=== PATIENT | female | born 1990 | race Caucasian/White ===

== ENCOUNTER 2016-10-29 15:28 | Emergency (ER) | payer OTHER ==
[~2016-10-29] VITALS: Ht 160 cm; Wt 109.1 kg
[~2016-10-29 15:28] MED LIST: AMOX-366 PO; Ascorbic Acid PO; Bisacodyl RECTAL; DOCU-41 PO; FERR-74 PO; IBUP400T22 PO; MELA1TAB11 PO; OXYC1TAB24 PO; PREN1TAB87 PO
[2016-10-29 15:42] VITALS: BP 138/91; PULSE 86; RESP 22; O2SAT 99
--- NOTE | 2016-10-29 16:15 | ED.REPORT ---
HPI-Trauma Multiple Date of Service Oct 29, 2016 ED Provider: Lazaro Streeter MD This is a 26 year old female presenting to the ED with injury to left scalp that occurred just prior to arrival. Pt was in the bathroom when her R knee "gave out." She hit her head against the corner of a door and was found down by her spouse. Reports brief LOC, neck pain, bleeding from the scalp, headache, mild confusion, R knee pain, and nausea. She denies vomiting, dizziness, abdominal pain, any other trauma or injuries. Nursing Notes Stated Complaint: FELL HIT FACE, BLEEDING Chief Complaint: Head, Face, Neck Trauma Nursing Notes Reviewed: Yes Allergies: Coded Allergies: hydrocodone (Verified Allergy, Unknown, 10/29/16) Scheduled ([Ascorbic Acid]) 500 MG TABLET 500 MG PO BID Amoxicillin/Clav K 875-125 mg (Augmentin 875-125 mg) 1 Each Tablet 1 TABLET PO BID Ferrous Sulfate (Feosol) 325 Mg Tablet 325 MG PO BIDWM Melatonin/Pyridoxine (Melatonin 3 mg Tablet) 1 Each Tablet 7 EACH PO HS Vit W-Ca,Fe,FA(<1 mg) ( Vitamins) 1 Each Tablet 1 EACH PO DAILY Scheduled PRN ([Bisacodyl]) 10 MG SUPP 10 MG RECTAL DAILY PRN PRN For Constipation Docusate Sodium (Colace) 100 Mg Capsule 100 MG PO BID PRN PRN For Constipation Hydrocodone-Acetaminophen 5-325 mg (Hydrocodone-Acetaminophen 5-325 mg) 1 Each Tablet 1 TABLET PO Q4H PRN PRN For Pain Ibuprofen (Ibuprofen) 400 Mg Tablet 800 MG PO TID PRN PRN For Pain Ondansetron ODT (Zofran ODT) 4 Mg Tablet 4 MG PO Q4H PRN PRN For Nausea oxyCODONE-Acetaminophen 5-325 mg (oxyCODONE-Acetaminophen 5-325 mg) 1 Each Tablet 1-2 TAB PO Q4H PRN PRN For Pain General Time Seen by Provider: 15:40 Chief Complaint Head pain/injury Hx Obtained From: Patient Arrived By: Walk-in Onset Occurred: Just prior to arrival Symptom Duration: Since onset Severity: Current: Mild Pertinent Negative: Pt denies other symptoms Recent Healthcare: No recent doctor visit, No recent hospitalization Similar Sx Previous: No Risk-Trauma Multiple Head CT Imaging Inclusion Criteria: >/= 16 yo age GCS of 14 OR 15 Presentation w/in 24 hrs. Patient Presents WITH: Loss of Conciousness RF Statements: Risk factors reviewed Past Medical History Past Medical History PCOS Past Surgical History left knee, ACL and meniscus at 14 year old Reports: , Cholecystectomy Family History heart disease (maternal relations) Smoking History Never Smoker Social History Alcohol Use: "Social" Drug Use: Meth, THC Other Social History: Good social support, Local resident Occupation lives with boyfriend.Works at [employer] Status Independent Review of Systems Constitutional: Denies: Chills, Fever GI: Reports: Nausea, Denies: Abdominal pain, Constipation, Diarrhea, Vomiting Neurologic: Reports: Change LOC, Headache, Denies: Lightheaded Complete sys rev & neg: except as marked. Physical Exam Initial Vital Signs Vital Signs (First) Date Time Temp Pulse Resp B/P Pulse Ox O2 Delivery O2 Flow Rate FiO2 10/29/16 15:42 36.8 86 22 138/91 99 Room Air Initial VS: Reviewed ENT: Mucous membranes moist, Conjunctiva normal, No scleral icterus Extremities: Vascular intact, Neuro intact, No swelling, No tenderness Skin: Warm, Dry, No cyanosis Psychiatric: Mood/affect normal, Behavior normal, Normal thought content General/Constitutional: Awake, Alert Head / Eyes: PERRL (4 mm), No periorbital swelling, Eyelids NL 1 x 5 cm region of abrasion about l forehead and scalp no laceration, no foreign body, lots of dried blood, no region of laceration Neck: Atraumatic, Supple, Full range of motion, No swelling, Non-tender, No midline vertebral tend, No masses, No crepitus, No JVD, No tracheal deviation Respiratory / Chest: Atraumatic, Breath sounds NL, Breath sounds = bilat, No respiratory distress, No rales, No rhonchi, No wheezing, No stridor, No chest tenderness, No chest wall deformity, No crepitus Cardiovascular: Heart rate NL, Regular rhythm, Heart sounds NL Abdomen: Atraumatic, Soft, Non-tender, No guarding, No rebound, No distention Back: Atraumatic, Inspection NL, Non-tender, No midline vertebral tend, No paraspinal tenderness, No CVA tenderness Neurologic: Oriented X3, Speech NL, No motor deficits, No sensory deficits Interpretation & Diagnostics R KNEE X-RAY IMPRESSION: Large knee joint effusion. No acute fracture or dislocation. If pain persists, followup imaging in 5-7 days is recommended to exclude occult fracture. Dictated by: Kirstin Cohen M.D. on 10/29/2016 at 16:59 Approved by: Kirstin Cohen M.D. on 10/29/2016 at 17:00 CT BRAIN IMPRESSION: 1. No acute intracranial abnormalities. 2. Mild maxillary sinus disease. Dictated by: Edmar Gil M.D. on 10/29/2016 at 17:59 Approved by: Edmar Gil M.D. on 10/29/2016 at 18:01 CT C-SPINE IMPRESSION: 1. No acute intracranial abnormalities. 2. Mild maxillary sinus disease. Dictated by: Edmar Gil M.D. on 10/29/2016 at 17:59 Approved by: Edmar Gil M.D. on 10/29/2016 at 18:01 Re-Eval/Medical Decision Med Decision/Clinical Course In summary, the patient is a 26-year-old female who presents to the emergency department after a ground-level fall resulting in striking the left side of her forehead. She has abrasions to her left forehead as described above. Fall occurred in the setting of chronic instability of her right knee and recent anterior cruciate ligament repair. She states that she may have lost consciousness after falling. Upon arrival she is afebrile with stable vital signs that she does have some repeated questioning and reports nausea. She received oxycodone for pain and Zofran for nausea. Neurologic examination was nonfocal and nonlateralizing. CT scan of the head and cervical spine demonstrated no fractures or acute intracranial abnormalities. The cervical spine was cleared. She was monitored here in the emergency department and had no evolving symptoms. X-rays of the right knee demonstrated effusion though no focal bony abnormality. She was provided with a knee brace and crutches. Her wounds were cleaned, irrigated and nonadherent dressings were placed. There were no lacerations requiring sutures. Her tetanus status was already up-to- date. She is referred to orthopedic surgery given the proximity of this injury to her recent surgery and presence of effusion. There is no evidence of neurovascular deficit. She was discharged in stable condition. Follow up and return precautions were provided in detail and she verbalized understanding and agreement with the plan. Re-Evaluation/Progress : Time of Eval: 18:01 Re-Evaluation/Progress Note: Discussed normal lab and imaging results and plan for discharge. Pt understands truman durangaviota with plan, all questions addressed. Counseled Regarding: Diagnosis, Lab results, Need for follow-up, When/why to return to ED Discharge & Departure Impression: Primary Impression: Head trauma Encounter type: initial encounter Qualified Code: S09.90XA - Unspecified injury of head, initial encounter Additional Impressions: Concussion Encounter type: initial encounter Loss of consciousness presence/duration: with LOC of 30 min or less Qualified Code: S06.0X1A - Concussion with loss of consciousness of 30 minutes or less, initial encounter Scalp abrasion Encounter type: initial encounter Qualified Code: S00.01XA - Abrasion of scalp, initial encounter Right knee pain Chronicity: acute Qualified Code: M25.561 - Pain in right knee Effusion, right knee History of knee surgery Fall from ground level Disposition: Home Discharge Condition All VS Reviewed: Yes Condition: Stable Patient Instructions: Concussion (ED) Additional Instructions: Thank you for seeking care at emergency room. It is difficult for us to make definitive diagnoses in the ED but we believe that you are experiencing a concussion due to the fall. Our primary goal today in the ED was to evaluate you for any life-threatening conditions. Your evaluation was reassuring. You will be discharged with a prescription for [place], take as prescribed for pain. Take zofran as prescribed for nausea. You should follow-up with your primary doctor in the next week. Follow up with orthopedist listed below for further evaluation of your knee if pain persists. You should return to the ED immediately if you develop fevers, vomiting, cough, shortness of breath, chest pain, lightheadedness, weakness or any other concerning signs or symptoms. Thank you for letting us partake in your care today. You have been prescribed a narcotic for pain relief. These drugs are usually combined with acetaminophen (Tylenol#3, Percocet, Darvocet, Anexsia, Vicodin) or aspirin (Empirin#3, Percodan, Synalogs-DC) for increased effect. Narcotics act on the central nervous system to reduce pain; they also impair mental alertness and physical abilities. We advise you not to drink alcohol, drive a car, or operate dangerous equipment when you are taking [id number] drugs. You can lessen stomach irritation from your medicine by taking it with meals or a full glass of water. Common side effects of narcotics are: Nausea and vomiting, heartburn, consitpation, dizziness, sleepiness, and mood changes. If you have bothersome side effects or symptoms of an allergic reaction (itching, hives, rash), stop taking your medicine and call your doctor or the emergency room right a way. Please keep your arcotic medicine well out of the reach of children. Referrals: Piedad Montague (PCP) Slava Cheatham DO Scribe Attestation Portions of this note were transcribed by Akira Vicente. I, Dr. Streeter personally performed the history, physical exam and medical decision-making; I reviewed and confirmed the accuracy of the information in the transcribed note. Signed by: romeo Lopez. 10/29/2016, 17:30. Lazaro Streeter MD Oct 29, 2016 16:15 AKIRA VICENTE Oct 29, 2016 16:22
--- NOTE | 2016-10-29 17:02 | DRSVH ---
PROCEDURE: X-RAY RIGHT KNEE, THREE VIEWS ([id number]) INDICATIONS: pain TECHNIQUE: 3 views of the knee were acquired. COMPARISON: [facility], CR, XR KNEE 3VW RT, 09/05/2016, 11:46. FINDINGS: Bones: a status post ACL repair. No acute fracture or dislocation. Soft tissues: There is a large joint effusion. No suspicious soft tissue calcifications. IMPRESSION: Large knee joint effusion. No acute fracture or dislocation. If pain persists, followup i maging in 5-7 days is recommended to exclude occult fracture. Dictated by: Kirstin Cohen M.D. on 10/29/2016 at 16:59 Approved by: Kirstin Cohen M.D. on 10/29/2016 at 17:00
--- NOTE | 2016-10-29 18:03 | DRSVH ---
PROCEDURE: CT BRAIN WITHOUT CONTRAST ([id number]) INDICATIONS: trauma TECHNIQUE: Noncontrast 4.5 mm thick angled axial sections acquired from the foramen magnum to the vertex, with c oronal reformats. COMPARISON: [facility], CT, CT CERVICAL SPINE WO CON, 10/29/2016, 17:16. FINDINGS: Image quality: Excellent. CSF spaces: Basal cisterns are patent. No extra-axial fluid collections. Ventricles are normal in size and shape. Brain: No midline shift. No intracranial masses or hemorrhage. Isbell-white matter interface is norm al. Skull and face: Calvarium and visualized facial bones are intact, without suspicious lesions. Sinuses: Mild maxillary sinus mucosal thickening. Mastoids are clear. IMPRESSION: 1. No acute intracranial abnormalities. 2. Mild maxillary sinus disease. Dictated by: Edmar Gil M.D. on 10/29/2016 at 17:59 Approved by: Edmar Gil M.D. on 10/29/2016 at 18:01
--- NOTE | 2016-10-29 18:04 | DRSVH ---
PROCEDURE: CT CERVICAL SPINE WITHOUT CONTRAST ([id number]) INDICATIONS: trauma TECHNIQUE: Noncontrast 3 mm thick sections acquired from the skull base to the T4 level. Sagittal and coronal r eformats were then constructed. For radiation dose reduction, the following was used: automated exp osure control, adjustment of mA and/or kV according to patient size. COMPARISON: None. FINDINGS: Image quality: Excellent. Bones: No fractures or dislocations. Visualized superior ribs are intact. Soft tissues: Prevertebral soft tissues are normal in thickness. No paravertebral hematomas. No ap ical pneumothoraces. IMPRESSION: No fractures. Dictated by: Edmar Gil M.D. on 10/29/2016 at 18:02 Approved by: Edmar Gil M.D. on 10/29/2016 at 18:02
[2016-10-29] MEDS ORDERED: ONDA4TAB9 PO (18:09)
[2016-10-29] MEDS ORDERED: HYDR-4003 PO (18:09)
[2016-10-29] MEDS ORDERED: Lidocaine-Epi-Tetracaine Solution 3 mL Syringe TOPICAL ONE (18:35)
[2016-10-29] MEDS ORDERED: OXYC1TAB24 PO (19:07)
[2016-10-29 19:25] VITALS: BP 134/65; PULSE 68; RESP 18; O2SAT 98
== END 2016-10-29 19:29 | disposition home or self-care (01) ==
LOC: SED 15:28
DX: S06.0X1A Concussion with loss of consciousness of 30 minutes or less, initial encounter (principal); S00.01XA Abrasion of scalp, initial encounter; W18.39XA Other fall on same level, initial encounter; Y92.012 Bathroom of single-family (private) house as the place of occurrence of the external cause; Y93.89 Activity, other specified; Y99.8 Other external cause status; M25.561 Pain in right knee; M25.461 Effusion, right knee; M54.2 Cervicalgia; Z98.890 Other specified postprocedural states; Z88.5 Allergy status to narcotic agent

== ENCOUNTER → 2017-05-10 | Day surgery (SDC) | payer OTHER ==
[2017-05-10] VITALS (12 sets, daily range): BP systolic 125–187; BP diastolic 53–90; PULSE 67–90; RESP 10–21; O2SAT 93–99
[~2017-05-10] VITALS: Ht 160 cm; Wt 118.1 kg
[~2017-05-10] MED LIST changes: -AMOX-366 PO; -Ascorbic Acid PO; -Bisacodyl RECTAL; +Bupivacaine-MPF 0.5% 30 mL Inj INFILTRATE ONE; +CeFAZolin 2 Gm/50 mL D5W Duplex Bag IV ONE; +CeFAZolin Inj 3 GM in IV Premix IV ONE; -DOCU-41 PO; +Dexamethasone 4 mg/mL Inj IVPUSH PRN; +Dexamethasone 4 mg/mL Inj ONE; +EPHEDrine Sulfate 50 mg/mL Inj IVPUSH PRN; -FERR-74 PO; +HYDROmorphone 1 mg/mL Inj ONE; +IBUP-1827 PO; -IBUP400T22 PO; +Ketamine 10 mg/mL 20 mL Inj ONE; +Lactated Ringer's 1,000 ML IV SCH; +Lactated Ringer's 500 ML IV PRN; -MELA1TAB11 PO; -OXYC1TAB24 PO; +OXYC5TAB72 PO; +Ondansetron 2 mg/mL 2 mL Inj IVPUSH PRN; +Ondansetron 2 mg/mL 2 mL Inj ONE; -PREN1TAB87 PO; +Phenylephrine 10,000 mCg/mL Inj IVPUSH PRN; +Propofol 10 mg/mL 20 mL Inj ONE; +fentaNYL-PF 50 mCg/mL 2 mL Inj ONE; +oxyCODONE-Acetamin 5-325 mg Tablet PO PRN
--- NOTE | 2017-05-10 11:38 | PCM.HPANE ---
Patient Data Date of Service: May 10, 2017 Surgeon Admitting Provider: Attending Provider:Russell Montgomery MD Primary Care Physician:Piedad Montague Other Provider:Ligia Dodson Anesthesia Reason for Visit Right Index Finger Flexor Tendon Laceration Ht/WT & BMI Height (Feet): 5 Height (Inches): 3 Weight (Kilograms): 118.39 Body Mass Index 46.00 Allergies Coded Allergies: hydrocodone (Verified Allergy, Unknown, nausea, 05/09/17) Past Anesthesia History Anesthesia History: Denies:: Abnormal Airway, Anesthesia Reactions, Difficult Intubation, Fam Anesthesia Reaction Diabetes History Hx Diabetes?: No MRSA MRSA: No Medications Reported Medications Ibuprofen 600 Mg [id number] Mg PO QID PRN For Pain Ref 0 05/09/17 oxyCODONE 5 Mg Tablet5 Mg PO Q4H PRN For Pain Ref 0 05/09/17 Discontinued Reported Medications Melatonin/Pyridoxine (Melatonin 3 mg Tablet)1 Each Tablet7 Each PO HS 05/17/16 Vit W-Ca,Fe,FA(<1 mg) ( Vitamins)1 Each Tablet1 Each PO DAILY 05/17/16 Discontinued Scripts oxyCODONE-Acetaminophen 5-325 mg 1 Each Tablet1-2 Tab PO Q6H PRN For Pain #10 TABLET Prov:Yang Rand MD 10/29/16 Ondansetron ODT (Zofran ODT)4 Mg Tablet4 Mg PO Q4H PRN For Nausea #20 TABLET Prov:Lazaro Streeter MD 10/29/16 Amoxicillin/Clav K 875-125 mg (Augmentin 875-125 mg)1 Each Tablet1 Tablet PO BID #20 TABLET Ref 0 Prov:Brandon Rubin MD 05/31/16 [Bisacodyl] (Dulcolax Rectal Suppository)10 MG SUPP No Conflict Check10 Mg RECTAL DAILY PRN For Constipation #20 Prov:Brandon Rubin MD 05/31/16 Ibuprofen 400 Mg [id number] Mg PO TID PRN For Pain #60 TABLET Prov:Brandon Rubin MD 05/31/16 oxyCODONE-Acetaminophen 5-325 mg 1 Each Tablet1-2 Tab PO Q4H PRN For Pain #60 TABLET Prov:Brandon Rubin MD 05/31/16 [Ascorbic Acid] (Vitamin C)500 MG TABLET No Conflict Tytmz432 Mg PO BID with iron #60 Ref 2 Prov:Russell Castaneda MD 05/20/16 Docusate Sodium (Colace)100 Mg Ufatwwi303 Mg PO BID PRN For Constipation #60 CAPSULE Ref 0 Prov:Russell Castaneda MD 05/20/16 Ferrous Sulfate (Feosol)325 Mg Katxmx852 Mg PO BIDWM #60 TABLET Ref 2 Prov:Russell Castaneda MD 05/20/16 History History of ENT Problems?: No HEENT History: Denies:: Abnormal Airway Cataracts Difficult Intubation Glaucoma Hearing Problem Denture Type: None Teeth Condition: Missing Teeth Hx of Heart Problems?: No Cardiovascular History: Denies:: AICD Congestive Heart Failure Heart Murmur Hypertension Irregular Heartbeat Pacemaker Peripheral Vascular Hx of Respiratory Problem?: Yes Respiratory History: Positive for:: Asthma (not for last year) Use of Inhalers / NEBS Denies:: COPD Emphysema Oxygen Administration Pneumonia Tuberculosis Use of C-PAP Machine Hx Neurologic Problems?: No Neurological History: Denies:: CVA Dizziness Headaches Multiple Sclerosis Parkinson's Disease Seizures TIA Hx of GI Problems?: Yes Hx of Problems?: Yes Genitourinary History: Denies:: Kidney Stones Urinary Tract Infection Female Hx: Denies:: Currently Problems with Breasts? Skin History: Denies:: History Skin Disorders? Pressure Ulcers Hx Musculoskeletal Problems?: Yes Musculoskeletal History: Positive for:: Back Injury (spinal scoliosis- poss dx ) Musculoskeletal Trauma (right index finger current admission problem) Osteoarthritis Denies:: Fibromyalgia Myasthenia Gravis Systemic Lupus Hx of Psycho/Social Problems?: Yes Psycho Social History: Positive for:: Anxiety (PTSD) Bipolar Disorder Hx Depression (post depression last year, still in counseling) Denies:: Suicide Attempt Hx Surgeries?: Yes (R knee, yanelis, c section) Hx Any Other Health Problems?: Yes Other History: Denies:: Cancer Hospitalization Thyroid Disease (on synthroid as child, no longer ) History Blood Transfusions: Positive for:: Accept Blood Products? Denies:: Blood Transfuse Reaction Blood Transfusions Hx Diabetes: No Hx Alcohol Use: NoHx Substance Use: Yes (marijuana daily inhale) Smoking Status: Never Smoker Have You Smoked inLast 12 mo: Yes (last smoked 2 weeks ago- 3-4 cigarettes daily) Stop/Bang S-Snoring: Do You Snore Loudly: No T-Tired: feel tired, fatigued: No O-Obsered: Observed not breath: No P-Blood Pressure: treated: No B- Body Mass Index > 35 kg/m2: Yes A- Age over 50: No N- Neck Large Circumference: Yes G- Gender Male: No SARAH BETH Total Score: 2 SARAH BETH Risk Assessment: Low Risk, <3 Yes Risk Assessment Category Category 1A: Patient has history of documented sleep apnea, and HAS NOT received any narcotic, sedative or anesthesia administration during this stay. Category 1B: Patient has history of documented sleep apnea, and HAS received any narcotic , sedative or anesthesia administration during this stay Category 2: Patient has SUSPECTED Obstructive Sleep Apnea, and HAS received any narcotic , sedative or anesthesia administration during this stay. Category 3: Patient has SUSPECTED Obstructive Sleep Apnea and HAS NOT received narcotic, sedative or anesthesia administration during this stay. Category 4: Outpatient in Procedural Areas with known sleep apnea or who screen positive for High Risk via the STOP/BANG questionnaire. Exam Exam General Appearance: Alert, Oriented X3, Cooperative, No Acute Distress HEENT/AIRWAY: MP 2 Lungs: Clear to Auscultation, Normal Air Movement Heart: Exam Unremarkable, Regular Rate/Rhythm, No Murmurs/Rubs/Gallops Plan Impression Patient chart reviewed, patient interviewed and anesthestic plan with risks, benefits, and alternatives discussed, and informed consent obtained. NPO per Anesth. Guidelines: Yes ASA Physical Status: ASA2 Mod Systemic Disease Anesthetic Plan: GA Bene/Risks/Altern/Consents: Yes HP Complete Prior to Induction: Yes Jairo Cortez DO May 10, 2017 11:38
[2017-05-10] MEDS: Lactated Ringer's 1,000 ML IV SCH ×2 (12:15→13:00)
[2017-05-10] MEDS: fentaNYL-PF 50 mCg/mL 2 mL Inj IVPUSH PRN ×2 (16:54→17:08)
--- NOTE | 2017-05-10 18:09 | OP ---
[address] [address] OPERATIVE REPORT PATIENT: ELENI CURRIE : 1990 MR#: [id number] ADMIT: 05/10/2017 JOB ID: [id number] DATE OF SURGERY: 05/10/2017 SURGEON: Russell Montgomery MD VISCOSE CELLAR WORKER: None. PREOPERATIVE DIAGNOSIS(ES): 1. Right index finger flexor tendon laceration in zone 2, "[place]" (ICD 10 code S64.40XA) 2. Right index finger radial digital nerve laceration, distal portion of the phalanx (ICD 10 code SX6.8218) POSTOPERATIVE DIAGNOSIS(ES): 1. Right index finger flexor tendon laceration in zone 2, "[place]" (ICD 10 code S64.40XA) 2. Right index finger radial digital nerve laceration, distal portion of the phalanx (ICD 10 code SX6.8218) PROCEDURE: 1. Repair right index finger flexor tendon laceration in zone 2 , "[place]." CPT code 07070. 2. Right radial digital nerve laceration of one branch repaired, remaining portion of the main nerve trunk intact. CPT code 87266. ANESTHESIA: General. Tourniquet utilized. ESTIMATED BLOOD LOSS: 5 mL. DRAINS: None. COMPLICATIONS: None. INDICATIONS: This is a 26-year-old, right-hand dominant female who cut her right index finger with a bread knife about two months ago. This was over the radial aspect flexor aspect of the index finger. She states she had some numbness at the very tip of that finger on the radial side. She was able to move the finger at the DIP, PIP and MCP joints. She was wrestling with her sister on April 30 and her finger accidentally hyperextended and she felt something pop in her finger. Clinically it appeared that the patient probably had a partial laceration initially to the flexor digitorum profundus and then ruptured the tendon the rest of the way recently. SPONGE AND NEEDLE COUNT: Correct. SPECIMEN TO PATHOLOGY: None. PROCEDURE IN DETAIL: Under adequate general anesthetic, a well-padded tourniquet was applied to the right upper extremity. After appropriate time-out was called, the arm was elevated, exsanguinated, tourniquet inflated to 250 mmHg. A Annemarie zigzag incision was fashioned. This began distally and then extended proximally. There was scar tissue over the volar aspect of the middle phalanx in the area of the laceration. There was a branch of the radial digital nerve that was lacerated but the main trunk was intact. The distal portion of the FDP tendon was identified. The flexor pulleys were intact. The tendon was not visible through Camper chiasm. It was also not visible at the level of the A1 humera. Just proximal to the A1 humera, I did milk the tendon and I was able to finally produce the FDP tendon. The wound was irrigated with saline. Utilizing the tendon passer and a suture at the end of the nerve, the nerve was passed underneath the A1, A2, A3 and A4 pulleys. Care was taken to make sure that the FDP tendon was passed through the appropriate interval as the FDS tendon split. I sutured the tendon with an 8-strand technique with 3-0 FiberWire. The tendon was noted to glide smoothly. I then did an edge repair with running suture of 6-0 Prolene to smooth the edge. Care was taken not to shorten the flexor tendon. The FDS tendon was intact. The small branch of the radial digital nerve was repaired with some interrupted sutures of 8-0 nylon. I performed a metacarpal nerve block for some postoperative analgesia. Tourniquet was released and minimal hemostasis was achieved. The wound was cleansed and then Xeroform placed on the wound and patient was placed in a well-padded volar and dorsal fiberglass splint. She was placed in a small amount of flexion incorporating the index and long fingers. The patient was taken to recovery room in stable condition. Sponge and needle count correct. No complications. PLAN: The patient will be seen in Hand Therapy to begin flexor tendon protocol. They will make her a hand splint and she will follow flexor tendon protocol. She was discharged home on Percocet 5/325, as well as Keflex. I also gave her prescription for some Vistaril for additional pain control. cc: [facility] Orthopedics
== END | disposition home or self-care (01) ==
LOC: SAS 11:52
PROVIDERS: ATTEND Orthopaedic Surgery
DX: S66.120A Laceration of flexor muscle, fascia and tendon of right index finger at wrist and hand level, initial encounter (principal); S64.490A Injury of digital nerve of right index finger, initial encounter; Q79.6 Ehlers-Danlos syndromes
CPT/HCPCS: 26356; 64831; 87070; 87075; 87205; J0690; J1100; J1170; J2250; J2405; J2704; J3010; J7120